=== PATIENT | female | born 1965 | race Caucasian/White ===

== ENCOUNTER 2016-07-05 09:43 | Emergency (ER) | payer OTHER ==
[~2016-07-05] VITALS: Ht 167.6 cm; Wt 97.5 kg
[~2016-07-05 09:43] MED LIST: ALPRAZOLAM0.25 M1 PO; CARAFATE1 G1 PO; FISH OIL 1,0001 EACH PO; FLAX OIL1000 M1 PO; FLUOXETINE HCL40 M1 PO; LEVOTHYROXINE200 MC1 PO; METFORMIN HCL1000 M1 PO; VALACYCLOVIR1000 MG PO
[2016-07-05] MEDS ORDERED: AMOXICILLIN500 M2 PO (10:21)
[2016-07-05] MEDS ORDERED: GABAPENTIN300 M2 PO (10:22)
[2016-07-05 10:45] LABS: ABSOLUTE BASOPHIL COUNT 0.1 /CUMM (0.0-0.2); ABSOLUTE EOSINOPHIL COUNT 0.3 /CUMM (0.0-0.7); ABSOLUTE GRANULOCYTE CT 4.9 /CUMM (1.4-6.5); ABSOLUTE LYMPH COUNT 2.2 /CUMM (1.2-3.4); ABSOLUTE MONOCYTE COUNT 0.6 /CUMM (0.10-0.60); EOSINOPHIL % 4.1 % (0-5); GRANULOCYTE % 60.6 % (42.2-75.2); HEMATOCRIT 30.2 % (37-47); MEAN CORPUSCULAR HGB 20.6 PG (27.0-31.0); MEAN CORPUSCULAR HGB CONC 30.6 G/DL (33.0-37.0); MEAN CORPUSCULAR VOLUME 67.2 FL (81.0-99.0); MEAN PLATELET VOLUME 6.8 FL (7.4-10.4); PLATELET COUNT 362 /CUMM (130-400); RBC DISTRIBUTION WIDTH 20.8 % (11.5-14.5); WHITE BLOOD CELL COUNT 8.1 /CUMM (4.8-10.8)
--- NOTE | 2016-07-05 12:08 | ED GI/GU/ABDOMINAL COMPLAINT ---
History of Present Illness General Chief Complaint: General Adult Stated Complaint: ABD PAIN Source: patient, old records, friend Exam Limitations: no limitations Vital Signs & Intake/Output Vital Signs & Intake/Output Vital Signs Date Time Temp Pulse Resp B/P Pulse O2 O2 Flow FiO2 Ox Delivery Rate 07/05 1207 97.8 90 20 172/74 98 Room Air 07/05 1120 97.0 80 168/70 07/05 1046 98.0 80 20 169/79 96 Room Air 07/05 0948 97.0 77 20 137/83 98 Room Air Allergies Coded Allergies: meloxicam (From [facility]) (Intermediate, SWELLING 08/23/15) Reconcile Medications Alprazolam 0.25 MG TABLET 1 TAB PO DAILY PRN ANXIETY (Reported) Amoxicillin 500 MG CAPSULE 1 CAP PO BID ANTIBIOTIC, INFECTION (Reported) Fluoxetine HCl 40 MG CAPSULE 1 CAP PO QAM MENTAL HEALTH (Reported) Gabapentin 300 MG CAPSULE 1 CAP PO TID UNKNOWN (Reported) Levothyroxine Sodium 200 MCG TABLET 1 TAB PO DAILY AC THYROID (Reported) Metformin HCl 1,000 MG TABLET 1 TAB PO DAILY DIABETES (Reported) Valacyclovir HCl (Valacyclovir) 1,000 MG TABLET 1 TAB PO DAILY INFECTION ( Reported) Triage Note: PT PRESENTS TO ER C/O OF ABDOMINAL PAIN. PT STATES PAIN IS GENERALIZED ALL OVER ABDOMEN. PT ALSO C/O OF N/V/D. PT STATES PAIN AND SYMPTOMS STARTED OVER THE WEEKEND. Triage Nurses Notes Reviewed? yes LMP (ages 10-50): unknown ? n Is pt currently ? No Onset: 2 days Duration: day(s):, continues in ED, getting worse, waxing and waning Timing: recent history Quality/Severity: aching, cramping, moderate Location: epigastric Radiation: chest, epigastric Activities at Onset: none Prior Abdominal Problems: similar symptoms Past Sexual History: Unobtainable at this time Modifying Factors: Worsens With: eating. Associated Symptoms: abdominal pain, diarrhea, loss of appetite, nausea/vomiting HPI: 2 days prior to admission patient complains of increasing nausea anorexia loose watery stool. Several hours prior to admission she developed epigastric pain described as aching moderate to severe radiating to her chest arm right leg constant. She denies fever chills chest pain cough shortness of breath dysuria rash bleeding. Past History Travel History Traveled to [place] past 21 day No Medical History Any Pertinent Medical History? see below for history Psychiatric: anxiety, depression Endocrine: diabetes, THYROID History of CDIFF: No Isolation History: Standard Surgical History Surgical History: cholecystectomy, Psychosocial History What is your primary language Hebrew Tobacco Use: Never used Family History Hx Contributory? No Review of Systems Review of Systems Constitutional: Reports: see HPI, malaise. EENTM: Reports: no symptoms. Respiratory: Reports: no symptoms. Cardiovascular: Reports: no symptoms. GI: Reports: see HPI, abdominal pain, diarrhea, nausea. Genitourinary: Reports: no symptoms. Musculoskeletal: Reports: no symptoms. Skin: Reports: no symptoms. Neurological/Psychological: Reports: no symptoms. Hematologic/Endocrine: Reports: no symptoms. Immunologic/Allergic: Reports: no symptoms. All Other Systems: Reviewed and Negative Physical Exam Physical Exam General Appearance: well developed/nourished, alert, awake, anxious, moderate distress, obese Head: atraumatic, normal appearance Eyes: Bilateral: normal appearance, PERRL, EOMI, normal inspection. Ears, Nose, Throat, Mouth: hearing grossly normal, dry mucous membranes Neck: normal inspection, supple, full range of motion, normal alignment Respiratory: normal breath sounds, chest non-tender, no respiratory distress, quiet respiration Cardiovascular: regular rate/rhythm, normal peripheral pulses, norml femoral pulses equa Peripheral Pulses: 4+ carotid (R), 4+ carotid (L) Gastrointestinal: normal bowel sounds, soft, non-tender, no organomegaly Back: normal inspection, normal range of motion Extremities: normal range of motion, no ligament instability Neurologic/Psych: no motor/sensory deficits, awake, alert, oriented x 3, normal gait, normal mood/affect, 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 No Severe Sepsis Present: No Septic Shock Present: No Progress Differential Diagnosis: biliary colic, gastritis, pancreatitis Plan of Care: Orders Procedure Date/time Status TROPONIN LEVEL 07/05 1018 Complete LIPASE 07/05 1018 Complete COMPREHENSIVE METABOLIC PANEL 07/05 1018 Complete CBC WITHOUT DIFFERENTIAL 07/05 1018 Complete EKG 07/05 1018 Active Laboratory Tests 07/05/16 1030: Anion Gap 11, Estimated GFR > 60, BUN/Creatinine Ratio 20.0, Glucose 115 H, Calcium 9.1, Total Bilirubin 0.5, AST 22, ALT 28, Alkaline Phosphatase 80, Troponin I < 0.01, Total Protein 7.5, Albumin 4.0, Globulin 3.5, Albumin/ Globulin Ratio 1.1, Lipase 56, CBC w Diff NO MAN DIFF REQ, RBC 4.50, MCV 67.2 L , MCH 20.6 L, RDW 20.8 H, MPV 6.8 L, Gran % 60.6, Lymphocytes % 26.6, Monocytes % 7.7, Eosinophils % 4.1, Basophils % 1.0, Absolute Granulocytes 4.9, Absolute Lymphocytes 2.2, Absolute Monocytes 0.6, Absolute Eosinophils 0.3, Absolute Basophils 0.1, PUBS MCHC 30.6 L Initial ED EKG: normal axis, normal intervals, normal p-waves, normal QRS complex, normal sinus rhythm, no ST T wave changes Departure Departure Time of Disposition: 1340 Disposition: HOME OR SELF CARE Condition: Stable Clinical Impression Primary Impression: Nausea Secondary Impressions: Abdominal pain Qualifiers: Abdominal location: epigastric Qualified Code: R10.13 - Epigastric pain Diarrhea Qualifiers: Diarrhea type: unspecified type Qualified Code: R19.7 - Diarrhea, unspecified [facility] ([facility]Family) Departure Forms: Customer Survey General Discharge Information Prescriptions: Current Visit Scripts Ondansetron (Zofran Odt) 1 TAB SL TID PRN nausea #15 TAB Hyoscyamine Sulfate (Levsin-Sl) 1-2 TAB SL Q4P PRN abd cramps diarrhea #30 TAB Loperamide HCl (Imodium A-D) 0 PO SEE ADMIN CRITERIA PRN diarrhea #24 TAB 1 tab after each loose stool up to 7 per day
[2016-07-05] MEDS ORDERED: ZOFRAN ODT4 M1 SL (13:43)
[2016-07-05] MEDS ORDERED: IMODIUM A-D2 M1 PO (13:43)
[2016-07-05] MEDS ORDERED: LEVSIN-SL0.125 MG SL (13:43)
[2016-07-05 13:56] VITALS: BP 148/76
== END 2016-07-05 13:59 ==
LOC: ERH 09:43
PROVIDERS: Emergency Medicine
DX: R11.0 Nausea (principal); R10.13 Epigastric pain; R19.7 Diarrhea, unspecified
CPT/HCPCS: 93005; 93010; 96361; 96374; 96375; 96376; J2765